=== PATIENT | female | born 1965 | race Caucasian/White ===

== ENCOUNTER → 2018-10-14 | Outpatient (CLI) | payer BC ==
[~2018-10-14] MED LIST: 'TENORMIN50 MG PO; DICYCLOMINE10 MG PO; FLEXERIL10 MG PO; MACROBID100 M1 PO; NEURONTIN100 MG PO; PAXIL20 MG PO; PERCOCET 325 MG1 TA2 PO; PHENERGAN W/DM120 ML PO; PHENERGAN25 M1 PO; PREDNICOT10 MG PO; PREVACID30 MG PO; PRILOSEC20 MG PO; PROAIR HFA0.09 MG/AC INH; SYNTHROID0.125 MG PO; Synthroid,Lev200 MCG PO; XANAX0.5 MG PO; ZOFRAN ODT4 MG SL
[2018-10-14 16:40] LABS: BASO % 0.5 % (0.0-1.0); EOS % 0.2 % (1.0-4.0); HEMATOCRIT 42.1 % (37.0-47.0); HEMOGLOBIN 13.6 g/dl (12.0-16.0); LYMPH # 1.2 10*3/uL (1.3-4.4); LYMPH % 18.5 % (27.0-41.0); MEAN CELL VOLUME 93.8 fl (81.0-99.0); MEAN CORPUSCULAR HGB 30.3 pg (27.0-31.0); MEAN CORPUSCULAR HGB CONC 32.3 g/dl (33.0-37.0); MEAN PLATELET VOLUME 9.8 fl (9.6-12.3); MONO # 0.4 10*3/uL (0.1-1.0); MONO % 5.9 % (3.0-9.0); NEUT # 4.9 10*3/uL (2.3-7.9); NEUT % 74.7 % (47.0-73.0); PLATELET COUNT AUTOMATED 244 10*3/uL (130-400); RED BLOOD COUNT 4.49 10*6/uL (4.10-5.10); RED CELL DISTRI WIDTH 11.9 % (0-14.5); WHITE BLOOD COUNT 6.6 10*3/uL (4.8-10.8)
[2018-10-14 17:00] LABS: ALBUMIN 3.8 gm/dl (3.1-4.5); ALKALINE PHOSPHATASE 76 U/L (45-117); BUN 10 mg/dl (7-24); CHLORIDE 103 mmol/L (98-107); CREATININE 0.97 mg/dL (0.55-1.02); POTASSIUM 3.2 mmol/L (3.5-5.1); SGOT/AST 40 IU/L (3-35); SGPT/ALT 50 U/L (12-78); SODIUM 138 mmol/L (136-145); TOTAL PROTEIN 7.6 gm/dL (6.4-8.2)
== END | disposition home or self-care (01) ==
LOC: LAB 15:37
PROVIDERS: Internal Medicine Hematology & Oncology
DX: C50.912 Malignant neoplasm of unspecified site of left female breast (principal); J44.9 Chronic obstructive pulmonary disease, unspecified; R91.1 Solitary pulmonary nodule

== ENCOUNTER → 2019-05-12 | Outpatient (CLI) | payer BC | END | disposition home or self-care (01) | LOC: CT 08:29 | DX: R91.1 Solitary pulmonary nodule (principal); J44.9 Chronic obstructive pulmonary disease, unspecified; F17.200 Nicotine dependence, unspecified, uncomplicated; Z79.810 Long term (current) use of selective estrogen receptor modulators (SERMs); Z95.1 Presence of aortocoronary bypass graft ==

== ENCOUNTER → 2019-06-11 | Outpatient (CLI) | payer BC | END | disposition home or self-care (01) | LOC: US 14:56 | DX: M79.604 Pain in right leg (principal) ==

== ENCOUNTER 2019-08-21 12:34 | Inpatient (IN) | payer BC ==
[~2019-08-21] VITALS: Ht 147.3 cm; Wt 106.2 kg
[2019-08-21] VITALS (11 sets, daily range): BP systolic 110–146; BP diastolic 44–112
--- NOTE | 2019-08-21 14:21 | NUR ---
PT DENIES ANY CHEST PAIN AT THIS TIME. PT STATES "I NEVER HAD CHEST PAIN JUST SORENESS IN MY CHEST, ITS NOTHING UNUSUAL."
[2019-08-21 14:23] LABS: BILIRUBIN NEGATIVE (NEGATIVE); BLOOD NEGATIVE (NEGATIVE); CLARITY CLEAR (CLEAR); COLOR YELLOW (YELLOW); GLUCOSE NEGATIVE (NEGATIVE); KETONE NEGATIVE (NEGATIVE); LEUKO ESTERASE TRACE (NEGATIVE); NITRITE NEGATIVE (NEGATIVE); PH 6.5 (5.0-9.0); UROBILINOGEN 0.2 E.U./dl (0.2-1.0)
[2019-08-21 14:29] LABS: BASO # 0.1 10*3/uL (0.0-0.1); BASO % 1.2 % (0.0-1.0); EOS # 0.7 10*3/uL (0.0-0.4); EOS % 8.9 % (1.0-4.0); HEMOGLOBIN 13.4 g/dl (12.0-16.0); LYMPH % 25.6 % (27.0-41.0); MEAN CELL VOLUME 99.8 fl (81.0-99.0); MEAN CORPUSCULAR HGB 31.8 pg (27.0-31.0); MEAN CORPUSCULAR HGB CONC 31.9 g/dl (33.0-37.0); MEAN PLATELET VOLUME 9.7 fl (9.6-12.3); MONO # 0.5 10*3/uL (0.1-1.0); MONO % 6.8 % (3.0-9.0); NEUT # 4.4 10*3/uL (2.3-7.9); NEUT % 57.2 % (47.0-73.0); PLATELET COUNT AUTOMATED 257 10*3/uL (130-400); RED BLOOD COUNT 4.21 10*6/uL (4.10-5.10); RED CELL DISTRI WIDTH 12.4 % (0-14.5); WHITE BLOOD COUNT 7.6 10*3/uL (4.8-10.8)
[2019-08-21 14:39] LABS: ACT PARTIAL THROMBO TIME 26.2 SECONDS (20.0-32.1); INTERNATIONAL NORM RATIO 0.9 (2.0-3.5)
[2019-08-21 14:46] LABS: ALBUMIN 3.5 gm/dl (3.1-4.5); ALKALINE PHOSPHATASE 84 U/L (45-117); BUN 10 mg/dl (7-24); CHLORIDE 107 mmol/L (98-107); CREATININE 0.86 mg/dL (0.55-1.02); LIPASE 99 U/L (73-393); POTASSIUM 3.8 mmol/L (3.5-5.1); SGOT/AST 17 IU/L (3-35); SGPT/ALT 20 U/L (12-78); SODIUM 140 mmol/L (136-145); TOTAL PROTEIN 7.4 gm/dL (6.4-8.2)
[2019-08-21 14:47] LABS: TROPONIN I < 0.015 ng/ml (<0.045)
[2019-08-21] MEDS ORDERED: CYCLOBENZAPRINE10 MG PO ×2 (18:15→20:03)
--- NOTE | 2019-08-21 18:24 | NUR ---
[facility] , under the services of ARMAAN Kenny DO with a diagnosis of CHEST PAIN . Chief complaint is DENIES COMPLAINTS. Patient arrived via bed from ER. Monitor applied. Initial assessment completed. Vital signs taken and recorded. ARMAAN KENNY DO notified of admission to the unit. Orders received. See assessment for past medical history, medications and allergies. Patient and/or family oriented to unit. [facility] visitation policy reviewed. Clothing/patient valuable form completed. IMANI JOHNS
[2019-08-21] MEDS ORDERED: PERCOCET 7.5-31 EACH PO (20:05)
[2019-08-21] MEDS ORDERED: TAMOXIFEN CITRA20 MG PO (20:05)
[2019-08-21] MEDS ORDERED: XANAX0.5 MG PO (20:06)
--- NOTE | 2019-08-21 20:15 | NUR ---
RESTING IN BED WITH HOB ELEVATED. HEL LOCK INTACT TO RIGHT ARM; SITE ASYMPTOMATIC. LUNGS DIMINISHED BILATERALLY; NO COUGH NOTED AT THIS TIME. +2/+3 NONPITTING EDEMA NOTED TO BILATERAL EXTREMITIES. PT. STATES THAT SHE TAKES SOME HOME MEDICATIONS THAT WERE NOT REORDERED. WENT OVER MED REC WITH PATIENT & CALL & HE WAS GOING TO LOOK OVER THEM & REORDER THEM.
--- NOTE | 2019-08-21 22:22 | NUR ---
MEDICATED WITH [facility]CO FOR C/O NECK & BACK PAIN RATED AN 8/10.
[2019-08-22] VITALS: BP 102/54
--- NOTE | 2019-08-22 | NUR ---
RESTING IN BED WITH EYES CLOSED; MEDICATIONS GIVEN EARLIER APPARENTLY EFFECTIVE. CALL LIGHT WITHIN REACH.
--- NOTE | 2019-08-22 06:00 | NUR ---
AROUSES EASILY TO TAKE PO MEDICATION. VOICES NO C/O AT THIS TIME. CALL LIGHT REMAINS WITHIN REACH.
[2019-08-22 07:52] LABS: BASO % 0.8 % (0.0-1.0); EOS # 0.4 10*3/uL (0.0-0.4); EOS % 8.5 % (1.0-4.0); HEMATOCRIT 36.5 % (37.0-47.0); HEMOGLOBIN 11.6 g/dl (12.0-16.0); LYMPH # 1.3 10*3/uL (1.3-4.4); LYMPH % 25.9 % (27.0-41.0); MEAN CELL VOLUME 99.7 fl (81.0-99.0); MEAN CORPUSCULAR HGB 31.7 pg (27.0-31.0); MEAN CORPUSCULAR HGB CONC 31.8 g/dl (33.0-37.0); MEAN PLATELET VOLUME 9.9 fl (9.6-12.3); MONO # 0.4 10*3/uL (0.1-1.0); MONO % 7.9 % (3.0-9.0); NEUT # 2.9 10*3/uL (2.3-7.9); NEUT % 56.7 % (47.0-73.0); PLATELET COUNT AUTOMATED 207 10*3/uL (130-400); RED BLOOD COUNT 3.66 10*6/uL (4.10-5.10); RED CELL DISTRI WIDTH 12.4 % (0-14.5); WHITE BLOOD COUNT 5.1 10*3/uL (4.8-10.8)
[2019-08-22 08:00] VITALS: BP 108/52
[2019-08-22 08:00] LABS: ALBUMIN 2.8 gm/dl (3.1-4.5); BUN 10 mg/dl (7-24); CHLORIDE 111 mmol/L (98-107); CHOLESTEROL 156 mg/dL (<200); CREATININE 0.82 mg/dL (0.55-1.02); PHOSPHOROUS 3.6 mg/dL (2.5-4.9); POTASSIUM 3.7 mmol/L (3.5-5.1); SGOT/AST 15 IU/L (3-35); SGPT/ALT 14 U/L (12-78); SODIUM 142 mmol/L (136-145); TRIGLYCERIDES 112 mg/dl (<150); VLDL CHOLESTEROL 22 mg/dL (6-40)
[2019-08-22 08:04] LABS: ALKALINE PHOSPHATASE 64 U/L (45-117); FREE T4 1.46 ng/dl (0.76-1.46); HDL CHOLESTEROL 52 mg/dl (40-60); LDL CHOLESTEROL 82 mg/dL (9-159)
[2019-08-22 08:07] LABS: VITAMIN D, 25-HYDROXY 26.6 ng/mL (30-100)
[2019-08-22] MEDS ORDERED: LISINOPRIL5 MG PO (09:21)
--- NOTE | 2019-08-22 10:23 | NUR ---
Discharge instructions reviewed with patient/family. Patient receptive and verbalizes understanding. Follow-up care arranged. Written instructions given to patient/family.HEPLOCK REMOVED AND TELEMETRY ACCOUNTED FOR. EDUCATION PROVIDED REGARDING ANXIETY AND COPING WITH STRESS. GILDARDO DONG
== END 2019-08-22 10:23 | disposition home or self-care (01) | DRG 880 ==
LOC: ED 12:34 → EDHOLD 16:40 → 4E 17:53
PROVIDERS: Internal Medicine; Physician Assistant; ADMIT Emergency Medicine
DX: F41.1 Generalized anxiety disorder (principal); E43 Unspecified severe protein-calorie malnutrition; Z68.42 Body mass index [BMI] 45.0-49.9, adult; I10 Essential (primary) hypertension; E03.9 Hypothyroidism, unspecified; G89.29 Other chronic pain; E55.9 Vitamin D deficiency, unspecified; F17.210 Nicotine dependence, cigarettes, uncomplicated; E87.8 Other disorders of electrolyte and fluid balance, not elsewhere classified; D53.9 Nutritional anemia, unspecified; Z71.6 Tobacco abuse counseling; Z90.710 Acquired absence of both cervix and uterus; Z85.3 Personal history of malignant neoplasm of breast; Z83.6 Family history of other diseases of the respiratory system; Z82.3 Family history of stroke; Z82.49 Family history of ischemic heart disease and other diseases of the circulatory system; Z79.899 Other long term (current) drug therapy

== ENCOUNTER 2020-05-26 16:17 | Emergency (ER) | payer BC ==
[~2020-05-26] VITALS: Ht 149.8 cm; Wt 106.6 kg
[~2020-05-26 16:17] MED LIST changes: +CYCLOBENZAPRINE10 MG PO; +LISINOPRIL5 MG PO; +PERCOCET 7.5-31 EACH PO; +TAMOXIFEN CITRA20 MG PO
[2020-05-26 16:37] VITALS: BP 109/51
[2020-05-26] MEDS ORDERED: PEPCID40 MG PO (19:11)
[2020-05-26] MEDS ORDERED: PREDNISONE20 M1 PO (19:11)
[2020-05-26] MEDS ORDERED: EPIPEN 2-P0.3 MG/0.3 IJ ×2 (19:16)
== END 2020-05-26 19:24 | disposition home or self-care (01) ==
LOC: ED 16:17
DX: T63.441A Toxic effect of venom of bees, accidental (unintentional), initial encounter (principal); L50.9 Urticaria, unspecified; I10 Essential (primary) hypertension; E78.00 Pure hypercholesterolemia, unspecified; F17.200 Nicotine dependence, unspecified, uncomplicated; Z79.899 Other long term (current) drug therapy; Y92.89 Other specified places as the place of occurrence of the external cause

== ENCOUNTER 2020-10-15 12:52 | Emergency (ER) | payer BC ==
[~2020-10-15] VITALS: Ht 149.8 cm; Wt 108.0 kg
[~2020-10-15 12:52] MED LIST changes: +EPIPEN 2-P0.3 MG/0.3 IJ; +PEPCID40 MG PO; +PREDNISONE20 M1 PO
[2020-10-15 13:00] VITALS: BP 151/68
[2020-10-15] MEDS ORDERED: DOXYCYCLINE100 M3 PO (15:06)
== END 2020-10-15 15:16 | disposition home or self-care (01) ==
LOC: ED 12:52
DX: L02.213 Cutaneous abscess of chest wall (principal); L03.313 Cellulitis of chest wall; I10 Essential (primary) hypertension; E78.00 Pure hypercholesterolemia, unspecified; F17.210 Nicotine dependence, cigarettes, uncomplicated; Z79.899 Other long term (current) drug therapy; Z98.890 Other specified postprocedural states; Z90.49 Acquired absence of other specified parts of digestive tract; Z85.3 Personal history of malignant neoplasm of breast

== ENCOUNTER → 2020-12-15 | Outpatient (CLI) | payer BC ==
[~2020-12-15] MED LIST changes: +DOXYCYCLINE100 M3 PO
== END | disposition home or self-care (01) ==
LOC: US 11:19
PROVIDERS: ATTEND Nurse Practitioner Adult Health
DX: C50.012 Malignant neoplasm of nipple and areola, left female breast (principal); N64.89 Other specified disorders of breast

== ENCOUNTER → 2021-07-11 | Outpatient (CLI) | payer BC | END | disposition home or self-care (01) | LOC: COVID19 15:28 | PROVIDERS: ATTEND Internal Medicine | DX: Z11.52 Encounter for screening for COVID-19 (principal) ==

== ENCOUNTER → 2021-12-29 | Outpatient (CLI) | payer OTHER ==
[~2021-12-29] MED LIST changes: +ATENOLOL25 MG PO; +LEXAPRO10 MG PO; +MIDODRINE HCL10 MG PO
[2021-12-29 09:04] LABS: BASO # 0.1 10*3/uL (0.0-0.1); BASO % 0.8 % (0.0-1.0); EOS # 0.4 10*3/uL (0.0-0.4); EOS % 4.9 % (1.0-4.0); LYMPH # 2.5 10*3/uL (1.3-4.4); LYMPH % 35.4 % (27.0-41.0); MEAN CELL VOLUME 93.5 fl (81.0-99.0); MEAN CORPUSCULAR HGB 30.1 pg (27.0-31.0); MEAN CORPUSCULAR HGB CONC 32.1 g/dl (33.0-37.0); MEAN PLATELET VOLUME 9.7 fl (9.6-12.3); MONO # 0.6 10*3/uL (0.1-1.0); MONO % 7.8 % (3.0-9.0); NEUT # 3.6 10*3/uL (2.3-7.9); PLATELET COUNT AUTOMATED 223 10*3/uL (130-400); RED BLOOD COUNT 4.49 10*6/uL (4.10-5.10); WHITE BLOOD COUNT 7.1 10*3/uL (4.8-10.8)
[2021-12-29 09:28] LABS: ALKALINE PHOSPHATASE 57 U/L (45-117); BUN 15 mg/dl (7-24); CHLORIDE 106 mmol/L (98-107); POTASSIUM 4.3 mmol/L (3.5-5.1); SGOT/AST 15 IU/L (3-35); SGPT/ALT 19 U/L (12-78); SODIUM 139 mmol/L (136-145); TOTAL PROTEIN 6.6 gm/dL (6.4-8.2)
[2021-12-29 10:34] LABS: THYROID STIM HORMONE (HS) 13.5 uIU/ml (0.358-4.75)
== END | disposition home or self-care (01) ==
LOC: LAB 08:23
PROVIDERS: Family Medicine; ATTEND Internal Medicine Cardiovascular Disease
DX: Z13.220 Encounter for screening for lipoid disorders (principal); I47.9 Paroxysmal tachycardia, unspecified; R55 Syncope and collapse

== ENCOUNTER 2021-12-31 16:24 | Observation (INO) | payer OTHER ==
[~2021-12-31] VITALS: Ht 149.9 cm; Wt 112.5 kg
[~2021-12-31 16:24] MED LIST changes: -ATENOLOL25 MG PO; -LEXAPRO10 MG PO; -MIDODRINE HCL10 MG PO
[2021-12-31 16:42] VITALS: BP 141/57
[2021-12-31 16:42] LABS: BASO # 0.1 10*3/uL (0.0-0.1); BASO % 0.9 % (0.0-1.0); EOS # 0.4 10*3/uL (0.0-0.4); EOS % 4.8 % (1.0-4.0); HEMATOCRIT 41.8 % (37.0-47.0); LYMPH # 2.4 10*3/uL (1.3-4.4); LYMPH % 29.6 % (27.0-41.0); MEAN CELL VOLUME 94.6 fl (81.0-99.0); MEAN CORPUSCULAR HGB 30.3 pg (27.0-31.0); MEAN CORPUSCULAR HGB CONC 32.1 g/dl (33.0-37.0); MEAN PLATELET VOLUME 9.6 fl (9.6-12.3); MONO # 0.5 10*3/uL (0.1-1.0); MONO % 6.7 % (3.0-9.0); NEUT # 4.6 10*3/uL (2.3-7.9); NEUT % 57.7 % (47.0-73.0); PLATELET COUNT AUTOMATED 271 10*3/uL (130-400); RED BLOOD COUNT 4.42 10*6/uL (4.10-5.10); RED CELL DISTRI WIDTH 12.1 % (0-14.5)
[2021-12-31 16:52] LABS: ACT PARTIAL THROMBO TIME 25.6 SECONDS (20.0-32.1); INTERNATIONAL NORM RATIO 0.9 (2.0-3.5)
[2021-12-31 16:58] LABS: ALKALINE PHOSPHATASE 60 U/L (45-117); BUN 13 mg/dl (7-24); CHLORIDE 110 mmol/L (98-107); POTASSIUM 4.2 mmol/L (3.5-5.1); SGOT/AST 12 IU/L (3-35); SGPT/ALT 19 U/L (12-78); SODIUM 140 mmol/L (136-145); TOTAL PROTEIN 6.9 gm/dL (6.4-8.2)
[2021-12-31 18:03] VITALS: BP 141/62
[2021-12-31 19:45] VITALS: BP 145/70
[2021-12-31 21:00] VITALS: BP 139/66
[2021-12-31 21:40] VITALS: BP 125/70
[2021-12-31] MEDS ORDERED: ATENOLOL25 MG PO (22:03)
[2021-12-31] MEDS ORDERED: LEXAPRO10 MG PO (22:04)
[2021-12-31] MEDS ORDERED: MIDODRINE HCL10 MG PO (23:27)
[2022-01-01] VITALS: BP 130/68
[2022-01-01 06:14] LABS: BASO % 0.5 % (0.0-1.0); EOS # 0.3 10*3/uL (0.0-0.4); EOS % 4.3 % (1.0-4.0); HEMATOCRIT 38.5 % (37.0-47.0); LYMPH # 2.5 10*3/uL (1.3-4.4); MEAN CELL VOLUME 95.5 fl (81.0-99.0); MEAN CORPUSCULAR HGB CONC 31.4 g/dl (33.0-37.0); MEAN PLATELET VOLUME 9.8 fl (9.6-12.3); MONO # 0.4 10*3/uL (0.1-1.0); MONO % 7.1 % (3.0-9.0); NEUT % 47.9 % (47.0-73.0); PLATELET COUNT AUTOMATED 231 10*3/uL (130-400); RED BLOOD COUNT 4.03 10*6/uL (4.10-5.10); RED CELL DISTRI WIDTH 12.2 % (0-14.5); WHITE BLOOD COUNT 6.2 10*3/uL (4.8-10.8)
[2022-01-01 06:17] LABS: BUN 13 mg/dl (7-24); CHLORIDE 106 mmol/L (98-107); CHOLESTEROL 185 mg/dL (<200); CREATININE 1.01 mg/dL (0.55-1.02); LDL CHOLESTEROL 117 mg/dL (9-159); POTASSIUM 4.2 mmol/L (3.5-5.1); SODIUM 139 mmol/L (136-145); TRIGLYCERIDES 171 mg/dl (<150)
[2022-01-01 16:00] VITALS: BP 102/41
[2022-01-01 20:00] VITALS: BP 104/48
[2022-01-02] VITALS: BP 104/38
[2022-01-02 08:00] VITALS: BP 92/47
[2022-01-02 12:00] VITALS: BP 104/55
[2022-01-02] MEDS ORDERED: ASPIRIN ADULT L81 M2 PO (14:19)
[2022-01-02] MEDS ORDERED: SYNTHROID,LEV125 MCG PO (14:19)
[2022-01-02] MEDS ORDERED: TENORMIN25 MG PO (14:19)
[2022-01-02] MEDS ORDERED: ATORVASTATIN CA10 M1 PO (14:19)
== END 2022-01-02 15:10 | disposition home or self-care (01) ==
LOC: ED 16:24 → 5E 19:34 → EDHOLD 19:34 → 5E 20:51
PROVIDERS: Emergency Medicine; Internal Medicine; ADMIT Emergency Medicine; ATTEND Emergency Medicine
DX: R07.89 Other chest pain (principal); R00.1 Bradycardia, unspecified; I10 Essential (primary) hypertension; E03.9 Hypothyroidism, unspecified; F41.0 Panic disorder [episodic paroxysmal anxiety]; R55 Syncope and collapse; F17.210 Nicotine dependence, cigarettes, uncomplicated; Z79.82 Long term (current) use of aspirin; Z79.899 Other long term (current) drug therapy

== ENCOUNTER → 2022-05-07 | Day surgery (SDC) | payer OTHER ==
[~2022-05-07] VITALS: Ht 149.8 cm; Wt 108.9 kg
[~2022-05-07] MED LIST changes: +ASPIRIN ADULT L81 M2 PO; +ATENOLOL25 MG PO; +ATORVASTATIN CA10 M1 PO; +LEXAPRO10 MG PO; +METOPROLOL SUCC25 M2 PO; +MIDODRINE HCL10 MG PO; +PERCOCET 5-3251 EACH PO; +SYNTHROID,LEV125 MCG PO; +TENORMIN25 MG PO
[2022-05-07 08:06] VITALS: BP 133/73
[2022-05-07 09:15] VITALS: BP 118/68
[2022-05-07 09:25] VITALS: BP 128/69
[2022-05-07 09:45] VITALS: BP 110/68
== END | disposition home or self-care (01) ==
LOC: SDC 05-03 08:00
PROVIDERS: ATTEND Surgery
DX: N63.20 Unspecified lump in the left breast, unspecified quadrant (principal); I10 Essential (primary) hypertension; E78.00 Pure hypercholesterolemia, unspecified; F41.9 Anxiety disorder, unspecified; Z85.3 Personal history of malignant neoplasm of breast; F32.9 Major depressive disorder, single episode, unspecified; F17.210 Nicotine dependence, cigarettes, uncomplicated; Z79.899 Other long term (current) drug therapy

== ENCOUNTER → 2022-06-29 | Day surgery (SDC) | payer OTHER ==
[~2022-06-29] VITALS: Ht 149.8 cm; Wt 108.0 kg
[~2022-06-29] MED LIST changes: +COLACE100 MG PO; +K-LOR 20MEQ20 ME1 PO; +KAPSPARGO SPRIN25 MG PO; +LASIX20 MG PO; +ONDANSETRON HYDR4 M1 PO; +VITAMIN B121000 MC1 PO; +VITAMIN D325 MCG PO
[2022-06-29 07:12] VITALS: BP 132/59
[2022-06-29 08:00] VITALS: BP 98/68
[2022-06-29 08:15] VITALS: BP 123/69
[2022-06-29 08:30] VITALS: BP 138/68
== END | disposition home or self-care (01) ==
LOC: SDC 06-26 12:30
PROVIDERS: ATTEND Surgery
DX: N63.20 Unspecified lump in the left breast, unspecified quadrant (principal); N64.4 Mastodynia; I10 Essential (primary) hypertension; E78.00 Pure hypercholesterolemia, unspecified; F17.210 Nicotine dependence, cigarettes, uncomplicated; Z79.899 Other long term (current) drug therapy; Z98.890 Other specified postprocedural states

== ENCOUNTER → 2023-07-19 | Outpatient (CLI) | payer OTHER | END | disposition home or self-care (01) | LOC: US 12:59 | PROVIDERS: ATTEND Family Medicine | DX: E03.9 Hypothyroidism, unspecified (principal) ==

== ENCOUNTER → 2024-05-28 | Outpatient (CLI) | payer OTHER | END | disposition home or self-care (01) | LOC: US 01:45 | PROVIDERS: ATTEND Physician Assistant | DX: D48.5 Neoplasm of uncertain behavior of skin (principal) ==

== ENCOUNTER → 2024-10-30 | Outpatient (CLI) | payer OTHER ==
[2024-10-30 17:46] LABS: BILIRUBIN Negative (Negative); BLOOD Trace-Intact (Negative); CLARITY Clear (Clear); COLOR Yellow (Yellow); GLUCOSE Negative (Negative); KETONE Negative (Negative); LEUKO ESTERASE 1+ (Negative); NITRITE Negative (Negative); PH 6.5 (4.5-8.0)
[2024-10-30 18:01] LABS: CALCIUM OXALATE CRYSTALS 1+; MUCOUS TRACE
== END | disposition home or self-care (01) ==
LOC: ZRHCWE 17:24
PROVIDERS: ATTEND Nurse Practitioner Family
DX: R30.0 Dysuria (principal)

== ENCOUNTER → 2025-02-08 | Outpatient (CLI) | payer OTHER ==
[2025-02-08 12:21] LABS: BASO # 0.1 10*3/uL (0.0-0.1); BASO % 0.9 % (0.0-1.0); EOS # 0.5 10*3/uL (0.0-0.4); EOS % 8.8 % (1.0-4.0); HEMATOCRIT 41.4 % (37.0-47.0); MEAN CELL VOLUME 96.7 fl (81.0-99.0); MEAN CORPUSCULAR HGB 31.1 pg (27.0-31.0); MEAN CORPUSCULAR HGB CONC 32.1 g/dl (33.0-37.0); MONO # 0.4 10*3/uL (0.1-1.0); MONO % 7.2 % (3.0-9.0); NEUT # 2.6 10*3/uL (2.3-7.9); NEUT % 48.2 % (47.0-73.0); PLATELET COUNT AUTOMATED 212 10*3/uL (130-400); RED BLOOD COUNT 4.28 10*6/uL (4.10-5.10); RED CELL DISTRI WIDTH 12.2 % (0-14.5); WHITE BLOOD COUNT 5.5 10*3/uL (4.8-10.8)
[2025-02-08 12:49] LABS: ALKALINE PHOSPHATASE 76 U/L (46-116); BUN 10 mg/dl (9-23); CHLORIDE 104 mmol/L (98-107); POTASSIUM 3.7 mmol/L (3.4-5.1); SGPT/ALT 12 U/L (5-49); TOTAL PROTEIN 6.3 gm/dL (6.0-8.0)
[2025-02-08 13:09] LABS: VITAMIN D, 25-HYDROXY 82.5 ng/mL (30-100)
== END | disposition home or self-care (01) ==
LOC: LAB 11:40
PROVIDERS: ATTEND Family Medicine
DX: E03.9 Hypothyroidism, unspecified (principal); E61.1 Iron deficiency; R73.01 Impaired fasting glucose; E55.9 Vitamin D deficiency, unspecified; Z13.6 Encounter for screening for cardiovascular disorders; Z00.00 Encounter for general adult medical examination without abnormal findings